=== PATIENT | male | born 1985 | race Caucasian/White ===

== ENCOUNTER 2016-10-24 09:38 | Inpatient (IN) | payer OTHER ==
[2016-10-24 10:00] VITALS: BMI 24.3
--- NOTE | 2016-10-24 10:17 | HP ---
COWS - Scale Resting Pulse: 0= [place] 80 or Below Sweatin= Chills/Flushing Restless Observation: 0= Sits Still Pupil Size: 0= Normal to Room Light Bone or Joint Aches: 2= Severe Diffuse Aches Runny Nose/ Eye Tearin= Nasal Congestion GI Upset > 30mins: 1= Stomach Cramp Tremor Observation: 1= Tremor [place], Not Seen Yawning Observation: 1= 1-2x During Session Anxiety or Irritability: 1=Feels Anxious/Irritable Goose Flesh Skin: 0=Smooth Skin COWS Score: 8 Admission ROS [facility] - HPI Chief Complaint: I want to get off drugs Allergies/Adverse Reactions: Allergies Allergy/AdvReac Type Severity Reaction Status Date / Time No Known Allergies Allergy Verified 10/24/16 09:58 History of Present Illness: 31 yo gentleman here for detox from heroin - has been using for five years, first time in detox. No seizures. Exam Limitations: Clinical Condition - Ebola screening Have you traveled outside of the country in the last 21 days: No Have you had contact with anyone from an Ebola affected area: No Have you been sick,other than usual withdrawal symptoms: No Do you have a fever: No Patient History - Patient Medical History Hx Asthma: No Hx Chronic Obstructive Pulmonary Disease (COPD): No Hx Cardiac Disorders: No Hx Hypertension: No Hx Seizures: No Hx Diabetes: No Hx Gastrointestinal Disorders: No Hx Liver Disease: No Hx Genitourinary Disorders: No Hx Sexually Transmitted Disorders: No Hx Renal Disease (ESRD): No Hx Thyroid Disease: No Hx Human Immunodeficiency Virus (HIV): No Hx Hepatitis C: No Hx Depression: No Hx Suicide Attempt: No Hx Bipolar Disorder: No Hx Schizophrenia: No - Patient Surgical History Past Surgical History: No - PPD History Previous Implant?: Yes Documented Results: Negative w/o proof Implanted On Prior [facility] Admission?: No PPD to be Administered?: Yes - Reproductive History Patient is a Female of Child Bearing Age (11 -55 yrs old): No (male) - Smoking Cessation Smoking history: Never smoked Have you smoked in the past 12 months: No Hx Chewing Tobacco Use: No Initiated information on smoking cessation: No - Substance & Tx. History Hx Alcohol Use: No Hx Substance Use: Yes Substance Use Type: Alcohol, Cocaine Hx Substance Use Treatment: No - Substances Abused Heroin Route: Injection Frequency: Daily Amount used: 1/2 gram Age of first use: 26 Date of Last Use: 10/23/16 Cocaine Route: Injection Frequency: Daily Amount used: 1/2 gram Age of first use: 18 Date of Last Use: 10/23/16 Marijuana/Hashish Route: Smoking Frequency: Daily Amount used: $20 Age of first use: 16 Date of Last Use: 10/23/16 Family Disease History - Family Disease History Family Disease History: [place]: Mother (alive, thyroid), Other: Father (no contact) , Mother, Brother (1, living, healthy), Sister (2 living, healthy) Admission Physical Exam [facility] - Vital Signs Vital Signs: Vital Signs - 24 hr 10/24/16 09:58 Temperature 95.9 F L Pulse Rate 61 Respiratory 20 Rate Blood Pressure 131/82 Cleared for Admission [facility] - Detox or Rehab [facility] Level of Care: Medically Managed Detox Regimen/Protocol: Methadone [facility] Breath Alcohol Content Breath Alcohol Content: 0 Urine Drug Screen - Results Drug Screen Negative: No Urine Drug Screen Results: THC-Marijuana, ENMANUEL-Cocaine, OPI-Opiates
[2016-10-24] MEDS ORDERED: MAG HYDROX/AL HYDROX/SIMETH 30 ML UNIT-DOSE CUP PO PRN (10:45)
[2016-10-24] MEDS ORDERED: IBUPROFEN 400 MG TABLET (FP) PO PRN (10:45)
[2016-10-24] MEDS ORDERED: MAGNESIUM CITRATE 300 ML BOTTLE PO PRN (10:45)
[2016-10-24] MEDS ORDERED: guaiFENesin/D-METHORPHAN HB 10 ML UNIT-DOSE CUPS PO PRN (10:45)
[2016-10-24] MEDS ORDERED: LOPERAMIDE HCL 2 MG CAPSULE PO PRN (10:45)
[2016-10-24] MEDS ORDERED: ACETAMINOPHEN 325 MG TABLET (FP) PO PRN (10:45)
[2016-10-24] MEDS ORDERED: MAGNESIUM HYDROX 2400MG/30ML ORAL SUSPENSION 30 ML CUP PO PRN (10:45)
[2016-10-24] MEDS ORDERED: MENTHOL/PHENOL 1 EACH UD MM PRN (10:45)
[2016-10-24] MEDS ORDERED: P-EPHED 60MG/TRIPROLIDI 2.5MG TABLET PO PRN (10:45)
[2016-10-24] MEDS ORDERED: hydrOXYzine PAMOATE 50 MG CAPSULE (FP) PO PRN (10:45)
--- NOTE | 2016-10-24 10:45 | HP ---
COWS - Scale Resting Pulse: 0= [place] 80 or Below Sweatin= Chills/Flushing Restless Observation: 0= Sits Still Pupil Size: 0= Normal to Room Light Bone or Joint Aches: 2= Severe Diffuse Aches Runny Nose/ Eye Tearin= Nasal Congestion GI Upset > 30mins: 1= Stomach Cramp Tremor Observation: 1= Tremor [place], Not Seen Yawning Observation: 1= 1-2x During Session Anxiety or Irritability: 1=Feels Anxious/Irritable Goose Flesh Skin: 0=Smooth Skin COWS Score: 8 Admission ROS S - HPI Chief Complaint: I want to get off drugs Allergies/Adverse Reactions: Allergies Allergy/AdvReac Type Severity Reaction Status Date / Time No Known Allergies Allergy Verified 10/24/16 09:58 History of Present Illness: 31 yo gentleman here for detox from heroin - first time in detox, history of using for five years. Denies seizures. Exam Limitations: Clinical Condition - Ebola screening Have you traveled outside of the country in the last 21 days: No Have you had contact with anyone from an Ebola affected area: No Have you been sick,other than usual withdrawal symptoms: No Do you have a fever: No - Review of Systems Constitutional: Malaise, Changes in sleep EENT: reports: Nose Congestion Respiratory: reports: No Symptoms reported Cardiac: reports: No Symptoms Reported GI: reports: Nausea, Poor Appetite : reports: Dysuria Musculoskeletal: reports: Back Pain, Joint Pain, Muscle Pain Integumentary: reports: No Symptoms Reported Neuro: reports: Headache Endocrine: reports: No Symptoms Reported Hematology: reports: No Symptoms Reported Psychiatric: reports: Judgement Intact, Mood/Affect Appropiate, Orientated x3, Anxious Other Systems: Reviewed and Negative Patient History - Patient Medical History Hx Asthma: No Hx Chronic Obstructive Pulmonary Disease (COPD): No Hx Cardiac Disorders: No Hx Hypertension: No Hx Seizures: No Hx Diabetes: No Hx Gastrointestinal Disorders: No Hx Liver Disease: No Hx Genitourinary Disorders: No Hx Sexually Transmitted Disorders: No Hx Renal Disease (ESRD): No Hx Thyroid Disease: No Hx Human Immunodeficiency Virus (HIV): No Hx Hepatitis C: No Hx Depression: No Hx Suicide Attempt: No Hx Bipolar Disorder: No Hx Schizophrenia: No - Patient Surgical History Past Surgical History: No - PPD History Previous Implant?: Yes Documented Results: Negative w/o proof Implanted On Prior [facility] Admission?: No - Reproductive History Patient is a Female of Child Bearing Age (11 -55 yrs old): No (male) - Smoking Cessation Smoking history: Never smoked Have you smoked in the past 12 months: No Hx Chewing Tobacco Use: No Initiated information on smoking cessation: No - Substance & Tx. History Hx Alcohol Use: No Hx Substance Use: Yes Substance Use Type: Cocaine, Heroin, Marijuana Hx Substance Use Treatment: No - Substances Abused Heroin Route: Injection Frequency: Daily Amount used: 1/2 gram Age of first use: 26 Date of Last Use: 10/23/16 Cocaine Route: Injection Frequency: Daily Amount used: 1/2 gram Age of first use: 18 Date of Last Use: 10/23/16 Marijuana/Hashish Route: Smoking Frequency: Daily Amount used: $20 Age of first use: 16 Date of Last Use: 10/23/16 Family Disease History - Family Disease History Family Disease History: [place]: Mother (alive, thyroid), Other: Father (no contact) , Mother, Brother (1, living, healthy), Sister (2 living, healthy) Admission Physical Exam S - Vital Signs Vital Signs: Vital Signs - 24 hr 10/24/16 09:58 Temperature 95.9 F L Pulse Rate 61 Respiratory 20 Rate Blood Pressure 131/82 - Physical General Appearance: Yes: Nourished, Appropriately Dressed, Moderate Distress, Anxious HEENTM: Yes: Hearing grossly Normal, Normal ENT Inspection, Normocephalic, Normal Voice, Pharynx Normal, Rhinorrhea Respiratory: Yes: Normal Breath Sounds, No Respiratory Distress Neck: Yes: No masses,lesions,Nodules, Supple Breast: Yes: Breast Exam Deferred Cardiology: Yes: Regular Rhythm, Regular Rate Abdominal: Yes: Soft Genitourinary: Yes: Dysuria Back: Yes: Decreased Range of Motion Musculoskeletal: Yes: full range of Motion, Gait Steady, Back pain, Muscle Pain Extremities: Yes: Normal Inspection, Normal Range of Motion, Non-Tender Neurological: Yes: Fully Oriented, Alert, Motor Strength 5/5, Normal Mood/Affect , Normal Response Integumentary: Yes: Normal Color, Warm, Track Marquez (both antecubital space - no abscess noted) - Diagnostic (1) Opioid dependence with withdrawal Current Visit: Yes Status: Chronic (2) Cocaine dependence Current Visit: Yes Status: Chronic Qualifiers: Complication of substance-induced condition: uncomplicated (3) Cannabis dependence Current Visit: Yes Status: Chronic Cleared for Admission [facility] - Detox or Rehab [facility] Level of Care: Medically Managed Detox Regimen/Protocol: Methadone [facility] Breath Alcohol Content Breath Alcohol Content: 0 Urine Drug Screen - Results Drug Screen Negative: No Urine Drug Screen Results: THC-Marijuana, ENMANUEL-Cocaine, OPI-Opiates
[2016-10-24] MEDS ORDERED: METHADONE HCL 10 MG TABLET (FOR DETOX USE ONLY) PO ONE ×2 (12:00→23:00)
[2016-10-24] MEDS: diazePAM 5 MG TABLET PO PRN (12:53)
[2016-10-24 18:19] LABS: URINE APPEARANCE CLEAR; URINE BILIRUBIN NEGATIVE (NEGATIVE); URINE BLOOD NEGATIVE (NEGATIVE); URINE COLOR AMBER; URINE GLUCOSE (UA) NEGATIVE (NEGATIVE); URINE KETONE NEGATIVE (NEGATIVE); URINE LEUK ESTERASE NEGATIVE (NEGATIVE); URINE NITRITE NEGATIVE (NEGATIVE); URINE UROBILINOGEN 4.0 E.U/dl mg/dL (0.2-1.0)
[2016-10-24 18:25] LABS: URINE PROTEIN 1+ (NEGATIVE)
[2016-10-24 18:26] LABS: URINE HYALINE CAST 5 /lpf; URINE MUCUS MANY; URINE RBC 3 /hpf (0-3); URINE WBC 1 /hpf (3-5)
[2016-10-24] MEDS: THIAMINE HCL 100 MG TABLET (FP) PO SCH (22:41)
--- NOTE | 2016-10-25 08:11 | EKG ---
Test Reason : Blood Pressure : / mmHG Vent. Rate : 061 BPM Atrial Rate : 061 BPM P-R Int : 144 ms QRS Dur : 096 ms QT Int : 402 ms P-R-T Axes : 027 056 049 degrees QTc Int : 404 ms NORMAL SINUS RHYTHM NORMAL ECG NO PREVIOUS ECGS AVAILABLE Confirmed by JAMEY OLEARY, FLAVIO ([id number]) on 10/25/2016 8:11:00 AM Referred By: Confirmed By:FLAVIO CONCEPCION MD
[2016-10-25 09:21] LABS: MCH 28.8 pg (25.7-33.7); MCHC 32.9 g/dl (32.0-35.9); MEAN CELL VOLUME 87.5 fl (80-96); MEAN PLT VOLUME 9.8 fl (7.5-11.1); PLATELET COUNT 212 K/MM3 (134-434); RDW 14.5 % (11.9-15.9); WHITE BLOOD COUNT 4.1 K/mm3 (4.0-10.0)
[2016-10-25 09:50] LABS: ALBUMIN 3.1 g/dl (3.4-5.0); ANION GAP 4 (8-16); CALCIUM 8.4 mg/dL (8.5-10.1); CO2 30 mmol/L (21-32); CREATININE 0.9 mg/dL (0.7-1.3); GLUCOSE,RANDOM 87 mg/dL (74-106); SGOT/AST 301 U/L (15-37)
[2016-10-25 09:52] LABS: ALK PHOS 90 U/L (45-117); BILIRUBIN,TOTAL 0.6 mg/dL (0.2-1.0); SGPT/ALT 586 U/L (12-78); TOT PROT 6.1 g/dl (6.4-8.2)
[2016-10-25] MEDS ORDERED: METHADONE HCL 10 MG TABLET (FOR DETOX USE ONLY) PO ONE (10:00)
[2016-10-25] MEDS: PRENATAL VITAMINS W/ FOLIC ACID TABLET (FP) PO SCH (10:57)
[2016-10-25] MEDS: diazePAM 5 MG TABLET PO PRN ×2 (11:00→20:30)
--- NOTE | 2016-10-25 16:05 | PN ---
S COWS - Scale Resting Pulse: 0= [place] 80 or Below Sweatin=Flushed/Facial Moisture Restless Observation: 3= Extraneous Movement Pupil Size: 1= Pupils >than Normal Bone or Joint Aches: 2= Severe Diffuse Aches Runny Nose/ Eye Tearin= Runny Nose/Eyes GI Upset > 30mins: 2= Nausea/Diarrhea Tremor Observation of Outstretched Hands: 2= Slight Tremor Visible Yawning Observation: 1= 1-2x During Session Anxiety or Irritability: 2=Irritable/Anxious Goose Flesh Skin: 0=Smooth Skin COWS Score: 17 S Progress Note (SOAP) Subjective: Sweating, chills, nausea, interrupted sleep, body ache Objective: 10/25/16 16:03 Last Vital Signs Temp Pulse Resp BP Pulse Ox 96.9 F L 64 18 115/73 10/25/16 10:52 10/25/16 10:52 10/25/16 10:52 10/25/16 10:52 Laboratory Tests 10/24/16 10/25/16 10/25/16 14:27 07:40 07:40 WBC 4.1 RBC 4.82 Hgb 13.9 Hct 42.2 MCV 87.5 MCH 28.8 MCHC 32.9 RDW 14.5 Plt Count 212 MPV 9.8 Sodium 142 Potassium 4.0 Chloride 108 H Carbon Dioxide 30 Anion Gap 4 L BUN 7 Creatinine 0.9 Creat Clearance w eGFR > 60 Random Glucose 87 Calcium 8.4 L Total Bilirubin 0.6 AST 301 H ALT 586 H Alkaline Phosphatase 90 Total Protein 6.1 L Albumin 3.1 L Urine Color Amy Urine Appearance Clear Urine pH 6.0 Ur Specific [place] 1.025 Urine Protein 1+ H Urine Glucose (UA) Negative Urine Ketones Negative Urine Blood Negative Urine Nitrite Negative Urine Bilirubin Negative Urine Urobilinogen 4.0 e.u/dl Ur Leukocyte Esterase Negative Urine RBC 3 Urine WBC 1 Hyaline Casts 5 Urine Mucus Many RPR Titer 10/25/16 07:40 WBC RBC Hgb Hct MCV MCH MCHC RDW Plt Count MPV Sodium Potassium Chloride Carbon Dioxide Anion Gap BUN Creatinine Creat Clearance w eGFR Random Glucose Calcium Total Bilirubin AST ALT Alkaline Phosphatase Total Protein Albumin Urine Color Urine Appearance Urine pH Ur Specific [place] Urine Protein Urine Glucose (UA) Urine Ketones Urine Blood Urine Nitrite Urine Bilirubin Urine Urobilinogen Ur Leukocyte Esterase Urine RBC Urine WBC Hyaline Casts Urine Mucus RPR Titer Nonreactive Labs noted: abnormal ua Assessment: 10/25/16 16:04 Withdrawal symptoms Noted with abnormal UA Plan: Continue detox Abnormal UA: encouraged to drink lots of water, repeat UA
[2016-10-25] MEDS: THIAMINE HCL 100 MG TABLET (FP) PO SCH (22:30)
[2016-10-26] MEDS: diazePAM 5 MG TABLET PO PRN ×3 (06:15→22:48)
[2016-10-26] MEDS ORDERED: METHADONE HCL 5 MG TABLET (FOR DETOX USE ONLY) PO ONE (10:00)
[2016-10-26] MEDS: PRENATAL VITAMINS W/ FOLIC ACID TABLET (FP) PO SCH (10:53)
--- NOTE | 2016-10-26 11:44 | PN ---
S COWS - Scale Resting Pulse: 0= [place] 80 or Below Sweatin=Flushed/Facial Moisture Restless Observation: 1= Difficult to Sit Still Pupil Size: 0= Normal to Room Light Bone or Joint Aches: 2= Severe Diffuse Aches Runny Nose/ Eye Tearin= Runny Nose/Eyes GI Upset > 30mins: 2= Nausea/Diarrhea Tremor Observation of Outstretched Hands: 2= Slight Tremor Visible Yawning Observation: 1= 1-2x During Session Anxiety or Irritability: 2=Irritable/Anxious Goose Flesh Skin: 0=Smooth Skin COWS Score: 14 S Progress Note (SOAP) Subjective: Anxiety,tremors,sweating,interrupted sleep,restless,body aches. Objective: 10/26/16 11:43 Vital Signs - 8 hr 10/26/16 10/26/16 07:28 09:18 Temperature 97.0 F L 97.5 F L Pulse Rate 50 L 59 L Respiratory 18 18 Rate Blood Pressure 112/81 105/71 Laboratory Tests 10/24/16 10/25/16 10/25/16 14:27 07:40 07:40 WBC 4.1 RBC 4.82 Hgb 13.9 Hct 42.2 MCV 87.5 MCH 28.8 MCHC 32.9 RDW 14.5 Plt Count 212 MPV 9.8 Sodium 142 Potassium 4.0 Chloride 108 H Carbon Dioxide 30 Anion Gap 4 L BUN 7 Creatinine 0.9 Creat Clearance w eGFR > 60 Random Glucose 87 Calcium 8.4 L Total Bilirubin 0.6 AST 301 H ALT 586 H Alkaline Phosphatase 90 Total Protein 6.1 L Albumin 3.1 L Urine Color Amy Urine Appearance Clear Urine pH 6.0 Ur Specific [place] 1.025 Urine Protein 1+ H Urine Glucose (UA) Negative Urine Ketones Negative Urine Blood Negative Urine Nitrite Negative Urine Bilirubin Negative Urine Urobilinogen 4.0 e.u/dl Ur Leukocyte Esterase Negative Urine RBC 3 Urine WBC 1 Hyaline Casts 5 Urine Mucus Many RPR Titer 10/25/16 07:40 WBC RBC Hgb Hct MCV MCH MCHC RDW Plt Count MPV Sodium Potassium Chloride Carbon Dioxide Anion Gap BUN Creatinine Creat Clearance w eGFR Random Glucose Calcium Total Bilirubin AST ALT Alkaline Phosphatase Total Protein Albumin Urine Color Urine Appearance Urine pH Ur Specific [place] Urine Protein Urine Glucose (UA) Urine Ketones Urine Blood Urine Nitrite Urine Bilirubin Urine Urobilinogen Ur Leukocyte Esterase Urine RBC Urine WBC Hyaline Casts Urine Mucus RPR Titer Nonreactive labs noted Assessment: 10/26/16 11:44 Withdrawal sx. Plan: Continue detox
--- NOTE | 2016-10-26 14:57 | CONSULT ---
[facility] Psychiatric Consult - Data Date of interview: 10/26/16 Admission source: [facility] Identifying data: First admission to [facility] for this 31 y/o male seeking detox treatment on for heroin,cocaine and marijuana dependence.Patient is single without children,homeless,unemployed and supported on food stamps. Substance Abuse History: Urine Drug Screen Results: THC-Marijuana, ENMANUEL-Cocaine, OPI-Opiates.Noted. Discussed in this session.Patient confirms this report : Smoking Cessation. Smoking history: Never smoked. Have you smoked in the past 12 months: No. Hx Chewing Tobacco Use: No. Initiated information on smoking cessation: No. - Substance & Tx. History. Hx Alcohol Use: No. Hx Substance Use: Yes. Substance Use Type: Cocaine, Heroin, Marijuana. Hx Substance Use Treatment: No. - Substances Abused. Heroin. Route: Injection. Frequency: Daily. Amount used: 1/2 gram. Age of first use: 26. Date of Last Use: . Cocaine. Route: Injection. Frequency: Daily. Amount used: 1/2 gram. Age of first use: 18. Date of Last Use: 10/23/16. Marijuana/Hashish. Route : Smoking. Frequency: Daily. Amount used: $20. Age of first use: 16. Date of Last Use: 10/23/16 Medical History: Patient endorses good general health. Psychiatric History: Patient denies. Physical/Sexual Abuse/Trauma History: Patient denies. Mental Status Exam - Mental Status Exam Alert and Oriented to: Time, Place, Person Cognitive Function: Good Patient Appearance: Well Groomed Mood: Hopeful, Euthymic Affect: Appropriate, Normal Range Patient Behavior: Fatigued, Appropriate, Cooperative Speech Pattern: Clear Voice Loudness: Normal Thought Process: Goal Oriented Thought Disorder: Not Present Hallucinations: Denies Suicidal Ideation: Denies Homicidal Ideation: Denies Insight/Judgement: Poor Sleep: Poorly, Difficulty falling asleep Appetite: Good Muscle strength/Tone: Normal Gait/Station: Normal Psychiatric Findings - Problem List ([place] 1, 2,3) (1) Opioid dependence with withdrawal Current Visit: Yes Status: Acute (2) Cannabis dependence Current Visit: Yes Status: Acute (3) Cocaine dependence Current Visit: Yes Status: Acute Qualifiers: Complication of substance-induced condition: uncomplicated (4) Insomnia Current Visit: Yes Status: Acute - Initial Treatment Plan Initial Treatment Plan: Psychoeducation.Detoxification.Ambien 10 mg po hs.Patient made aware of potential for parasomnia.he agrees with this careplan.Observation.
[2016-10-26 16:59] LABS: URINE APPEARANCE CLEAR; URINE BILIRUBIN NEGATIVE (NEGATIVE); URINE BLOOD NEGATIVE (NEGATIVE); URINE COLOR COLORLESS; URINE GLUCOSE (UA) 3+ (NEGATIVE); URINE KETONE NEGATIVE (NEGATIVE); URINE LEUK ESTERASE NEGATIVE (NEGATIVE); URINE NITRITE NEGATIVE (NEGATIVE); URINE PROTEIN NEGATIVE (NEGATIVE); URINE UROBILINOGEN NEGATIVE mg/dL (0.2-1.0)
[2016-10-26] MEDS: diphenhydrAMINE HCL 50 MG CAPSULE PO PRN (22:49)
[2016-10-26] MEDS: THIAMINE HCL 100 MG TABLET (FP) PO SCH (22:50)
[2016-10-27] MEDS ORDERED: METHADONE HCL 5 MG TABLET (FOR DETOX USE ONLY) PO ONE (10:00)
[2016-10-27] MEDS: PRENATAL VITAMINS W/ FOLIC ACID TABLET (FP) PO SCH (11:01)
[2016-10-27] MEDS ORDERED: ONDANSETRON *ODT* 4 MG TABLET SL PRN (11:59)
--- NOTE | 2016-10-27 13:49 | PN ---
[facility] Progress Note (SOAP) Subjective: Sweating,interrupted sleep,restless Objective: 10/27/16 13:48 Vital Signs - 8 hr 10/27/16 09:43 Temperature 97 F L Pulse Rate 80 Respiratory 18 Rate Blood Pressure 109/73 Laboratory Last Values WBC 4.1 K/mm3 (4.0-10.0) 10/25/16 07:40 RBC 4.82 M/mm3 (4.00-5.60) 10/25/16 07:40 Hgb 13.9 GM/dL (11.7-16.9) 10/25/16 07:40 Hct 42.2 % (35.4-49) 10/25/16 07:40 MCV 87.5 fl (80-96) 10/25/16 07:40 MCH 28.8 pg (25.7-33.7) 10/25/16 07:40 MCHC 32.9 g/dl (32.0-35.9) 10/25/16 07:40 RDW 14.5 % (11.9-15.9) 10/25/16 07:40 Plt Count 212 K/MM3 (134-434) 10/25/16 07:40 MPV 9.8 fl (7.5-11.1) 10/25/16 07:40 Sodium 142 mmol/L (136-145) 10/25/16 07:40 Potassium 4.0 mmol/L (3.5-5.1) 10/25/16 07:40 Chloride 108 mmol/L (98-107) H 10/25/16 07:40 Carbon Dioxide 30 mmol/L (21-32) 10/25/16 07:40 Anion Gap 4 (8-16) L 10/25/16 07:40 BUN 7 mg/dL (7-18) 10/25/16 07:40 Creatinine 0.9 mg/dL (0.7-1.3) 10/25/16 07:40 Creat Clearance w eGFR > 60 (>60) 10/25/16 07:40 Random Glucose 87 mg/dL (74-106) 10/25/16 07:40 Calcium 8.4 mg/dL (8.5-10.1) L 10/25/16 07:40 Total Bilirubin 0.6 mg/dL (0.2-1.0) 10/25/16 07:40 AST 301 U/L (15-37) H 10/25/16 07:40 ALT 586 U/L (12-78) H 10/25/16 07:40 Alkaline Phosphatase 90 U/L (45-117) 10/25/16 07:40 Total Protein 6.1 g/dl (6.4-8.2) L 10/25/16 07:40 Albumin 3.1 g/dl (3.4-5.0) L 10/25/16 07:40 Urine Color Colorless 10/26/16 16:51 Urine Appearance Clear 10/26/16 16:51 Urine pH 5.0 (5.0-8.0) 10/26/16 16:51 Ur Specific [place] <= 1.005 (1.005-1.025) 10/26/16 16:51 Urine Protein Negative (NEGATIVE) 10/26/16 16:51 Urine Glucose (UA) 3+ (NEGATIVE) H 10/26/16 16:51 Urine Ketones Negative (NEGATIVE) 10/26/16 16:51 Urine Blood Negative (NEGATIVE) 10/26/16 16:51 Urine Nitrite Negative (NEGATIVE) 10/26/16 16:51 Urine Bilirubin Negative (NEGATIVE) 10/26/16 16:51 Urine Urobilinogen Negative mg/dL (0.2-1.0) 10/26/16 16:51 Ur Leukocyte Esterase Negative (NEGATIVE) 10/26/16 16:51 Urine RBC 3 /hpf (0-3) 10/24/16 14:27 Urine WBC 1 /hpf (3-5) 10/24/16 14:27 Hyaline Casts 5 /lpf 10/24/16 14:27 Urine Mucus Many 10/24/16 14:27 RPR Titer Nonreactive (NONREACTIVE) 10/25/16 07:40 Hepatitis C Antibody >11.0 s/co ratio (0.0-0.9) H 10/25/16 07:40 labs noted Assessment: 10/27/16 13:49 Withdrawal sx Plan: Continue detox
[2016-10-27] MEDS: diphenhydrAMINE HCL 50 MG CAPSULE PO PRN (22:35)
[2016-10-27] MEDS: THIAMINE HCL 100 MG TABLET (FP) PO SCH (22:37)
[2016-10-28] MEDS: PRENATAL VITAMINS W/ FOLIC ACID TABLET (FP) PO SCH (09:29)
[2016-10-28 09:41] VITALS: BP 119/79; PULSE 79; TEMP 96.3
[2016-10-28] MEDS ORDERED: METHADONE HCL 10 MG TABLET (FOR DETOX USE ONLY) PO ONE (10:00)
--- NOTE | 2016-10-28 16:40 | DS ---
[facility] Detox Discharge Summary Admission Date: 10/24/16 Discharge Date: 10/28/16 - History Present History: Cannabis Dependence, Cocaine Dependence, Opioid Dependence Additional Comments: PATIENT DOES NOT WISH TO STAY TO COMPLETE DETOX REGIMEN. PATIENT ADVISED TO IMMEDIATELY GO TO NEAREST ER SHOULD ANY INTOLERABLE DETOX SYMPTOMS DEVELOP AT ANY TIME. PATIENT LEFT UNIT IN STABLE MEDICAL CONDITION. Pertinent Past History: Insomnia. - Physical Exam Results Vital Signs: Vital Signs Temperature 96.3 F L 10/28/16 09:41 Pulse Rate 79 10/28/16 09:41 Respiratory Rate 18 10/28/16 09:41 Blood Pressure 119/79 10/28/16 09:41 O2 Sat by Pulse Oximetry (%) Pertinent Admission Physical Exam Findings: WITHDRAWAL SYMPTOMS. Laboratory Tests 10/24/16 10/25/16 10/25/16 14:27 07:40 07:40 WBC 4.1 RBC 4.82 Hgb 13.9 Hct 42.2 MCV 87.5 MCH 28.8 MCHC 32.9 RDW 14.5 Plt Count 212 MPV 9.8 Sodium Potassium Chloride Carbon Dioxide Anion Gap BUN Creatinine Creat Clearance w eGFR Random Glucose Calcium Total Bilirubin AST ALT Alkaline Phosphatase Total Protein Albumin Urine Color Amy Urine Appearance Clear Urine pH 6.0 Ur Specific [place] 1.025 Urine Protein 1+ H Urine Glucose (UA) Negative Urine Ketones Negative Urine Blood Negative Urine Nitrite Negative Urine Bilirubin Negative Urine Urobilinogen 4.0 e.u/dl Ur Leukocyte Esterase Negative Urine RBC 3 Urine WBC 1 Hyaline Casts 5 Urine Mucus Many RPR Titer Hepatitis C Antibody >11.0 H 10/25/16 10/25/16 10/26/16 07:40 07:40 16:51 WBC RBC Hgb Hct MCV MCH MCHC RDW Plt Count MPV Sodium 142 Potassium 4.0 Chloride 108 H Carbon Dioxide 30 Anion Gap 4 L BUN 7 Creatinine 0.9 Creat Clearance w eGFR > 60 Random Glucose 87 Calcium 8.4 L Total Bilirubin 0.6 AST 301 H ALT 586 H Alkaline Phosphatase 90 Total Protein 6.1 L Albumin 3.1 L Urine Color Colorless Urine Appearance Clear Urine pH 5.0 Ur Specific [place] <= 1.005 Urine Protein Negative Urine Glucose (UA) 3+ H Urine Ketones Negative Urine Blood Negative Urine Nitrite Negative Urine Bilirubin Negative Urine Urobilinogen Negative Ur Leukocyte Esterase Negative Urine RBC Urine WBC Hyaline Casts Urine Mucus RPR Titer Nonreactive Hepatitis C Antibody LABS NOTED. - Treatment Hospital Course: Detoxed Safely - Medication Discharge Medications: Ambulatory Orders NK [No Known Home Medication] 10/24/16 - Diagnosis (1) Cannabis dependence Status: Acute (2) Insomnia Status: Acute Qualifiers: Insomnia type: unspecified Qualified Code(s): G47.00 - Insomnia, unspecified (3) Opioid dependence with withdrawal Status: Acute (4) Cocaine dependence, uncomplicated Status: Acute - AMA Did Patient Leave Against Medical Advice: Yes (PATIENT DID NOT WISH TO STAY TO COMPLETED DETOX REGIMEN.)
[2016-10-29] MEDS ORDERED: METHADONE HCL 5 MG TABLET (FOR DETOX USE ONLY) PO ONE (06:00)
[2016-10-29 10:12] LABS: HCV LOG 10 6.775 (.)
== END 2016-10-28 10:12 | disposition left against medical advice (07) | DRG 770 ==
LOC: YASAS 09:38 → Y3N 11:33
PROVIDERS: ADMIT Internal Medicine; ATTEND Internal Medicine
PROC: HZ2ZZZZ Detoxification Services for Substance Abuse Treatment (ICD-10-PCS; principal; 2016-10-24)
DX: F11.23 Opioid dependence with withdrawal (principal); F14.20 Cocaine dependence, uncomplicated; F12.20 Cannabis dependence, uncomplicated; G47.00 Insomnia, unspecified; R82.90 Unspecified abnormal findings in urine; Z59.0 Homelessness
CPT/HCPCS: 36415; 80053; 81003; 81015; 85027; 86593; 86803; 87522; 93005; 93010

== ENCOUNTER 2021-02-01 12:26 | Inpatient (IN) | payer BC ==
[2021-02-01 14:36] VITALS: BMI 23.1
[2021-02-01] MEDS ORDERED: ONDANSETRON *ODT* 4 MG TABLET SL PRN (15:20)
[2021-02-01] MEDS ORDERED: MAGNESIUM HYDROX 2400MG/30ML ORAL SUSPENSION 30 ML CUP PO PRN (15:20)
[2021-02-01] MEDS ORDERED: MENTHOL/PHENOL 1 EACH UD MM PRN (15:20)
[2021-02-01] MEDS ORDERED: MAGNESIUM CITRATE 300 ML BOTTLE PO PRN (15:20)
[2021-02-01] MEDS ORDERED: hydrOXYzine PAMOATE 25 MG CAPSULE (FP) PO PRN (15:20)
[2021-02-01] MEDS ORDERED: BISMUTH SUBSALICYLATE 524 MG/30 ML PO PRN (15:20)
[2021-02-01] MEDS ORDERED: IBUPROFEN 400 MG TABLET (FP) PO PRN (15:20)
[2021-02-01] MEDS ORDERED: MAG HYDROX/AL HYDROX/SIMETH 30 ML UNIT-DOSE CUP PO PRN (15:20)
[2021-02-01] MEDS ORDERED: METHOCARBAMOL 500 MG TABLET PO PRN (15:20)
[2021-02-01] MEDS ORDERED: ACETAMINOPHEN 325 MG TABLET (FP) PO PRN ×2 (15:20)
[2021-02-01] MEDS ORDERED: methaDONE HCL 10 MG TABLET (FOR DETOX USE ONLY) PO ONE (15:22)
[2021-02-01] MEDS: MELATONIN 5 MG TABLETS PO SCH (23:31)
[2021-02-01] MEDS: THIAMINE HCL 100 MG TABLET (FP) PO SCH (23:31)
[2021-02-02] MEDS: cloNIDine HCL 0.1 MG TABLET PO PRN ×2 (05:56→12:09)
[2021-02-02] MEDS ORDERED: methaDONE HCL 10 MG TABLET (FOR DETOX USE ONLY) ONE (09:04)
[2021-02-02] MEDS: PRENATAL VITAMINS W/ FOLIC ACID TABLET (FP) PO SCH (12:56)
[2021-02-02] MEDS: MELATONIN 5 MG TABLETS PO SCH (22:52)
[2021-02-02] MEDS: THIAMINE HCL 100 MG TABLET (FP) PO SCH (22:52)
[2021-02-03 08:55] VITALS: BP 118/77; PULSE 68; TEMP 96.9
[2021-02-03] MEDS ORDERED: methaDONE HCL 10 MG TABLET (FOR DETOX USE ONLY) PO ONE (10:00)
[2021-02-03] MEDS: PRENATAL VITAMINS W/ FOLIC ACID TABLET (FP) PO SCH (11:22)
[2021-02-03 12:20] LABS: HEMATOCRIT 43.1 % (35.4-49); HEMOGLOBIN 14.4 GM/dL (11.7-16.9); MCH 28.5 pg (25.7-33.7); MCHC 33.3 g/dl (32.0-35.9); MEAN CELL VOLUME 85.5 fl (80-96); PLATELET COUNT 366 10^3/uL (134-434); RBC 5.05 M/mm3 (4.00-5.60); RDW 15.6 % (11.9-15.9); WHITE BLOOD COUNT 5.6 K/mm3 (4.0-10.0)
[2021-02-03 12:24] LABS: BLOOD UREA NITROGEN 10.7 mg/dL (7-18); CALCIUM 9.6 mg/dL (8.5-10.1)
[2021-02-03 12:25] LABS: ALBUMIN 3.7 g/dl (3.4-5.0)
[2021-02-03 12:27] LABS: CREATININE 0.8 mg/dL (0.55-1.3)
[2021-02-03 12:29] LABS: BILIRUBIN,TOTAL 0.5 mg/dL (0.2-1)
[2021-02-03 12:30] LABS: TOT PROT 7.8 g/dl (6.4-8.2)
[2021-02-05] MEDS ORDERED: methaDONE HCL 10 MG TABLET (FOR DETOX USE ONLY) PO ONE (10:00)
== END 2021-02-03 09:52 | disposition left against medical advice (07) | DRG 770 ==
LOC: YASAS 12:26 → Y3N 15:40
PROVIDERS: ADMIT Allergy & Immunology; ATTEND Allergy & Immunology
PROC: HZ2ZZZZ Detoxification Services for Substance Abuse Treatment (ICD-10-PCS; principal; 2021-02-01)
DX: F11.23 Opioid dependence with withdrawal (principal); F14.20 Cocaine dependence, uncomplicated; F12.20 Cannabis dependence, uncomplicated; G47.00 Insomnia, unspecified
CPT/HCPCS: 36415; 80053; 85027; 86780; C9803; J0735; U0003; U0005

== ENCOUNTER 2021-06-08 15:17 | Inpatient (IN) | payer BC ==
[2021-06-08 15:43] VITALS: BMI 22.5
[2021-06-08] MEDS ORDERED: MAG HYDROX/AL HYDROX/SIMETH 30 ML UNIT-DOSE CUP PO PRN (16:05)
[2021-06-08] MEDS ORDERED: MELATONIN 5 MG TABLETS PO PRN (16:05)
[2021-06-08] MEDS ORDERED: LOPERAMIDE HCL 2 MG CAPSULE PO PRN (16:05)
[2021-06-08] MEDS ORDERED: P-EPHED 60MG/TRIPROLIDI 2.5MG TABLET PO PRN (16:05)
[2021-06-08] MEDS ORDERED: NICOTINE POLACRILEX 2 MG GUM BUC PRN (16:05)
[2021-06-08] MEDS ORDERED: ACETAMINOPHEN 325 MG TABLET (FP) PO PRN ×2 (16:05)
[2021-06-08] MEDS ORDERED: IBUPROFEN 400 MG TABLET (FP) PO PRN (16:05)
[2021-06-08] MEDS ORDERED: MAGNESIUM CITRATE 300 ML BOTTLE PO PRN (16:05)
[2021-06-08] MEDS ORDERED: NICOTINE 10 MG CARTRIDGE (INHALER) IH PRN (16:05)
[2021-06-08] MEDS ORDERED: MAGNESIUM HYDROX 2400MG/30ML ORAL SUSPENSION 30 ML CUP PO PRN (16:05)
[2021-06-08] MEDS ORDERED: MENTHOL/PHENOL 1 EACH UD MM PRN (16:05)
[2021-06-08] MEDS ORDERED: chlordiazePOXIDE HCL 25 MG CAPSULE PO PRN (16:07)
[2021-06-08] MEDS ORDERED: chlordiazePOXIDE HCL 25 MG CAPSULE ONE (17:12)
[2021-06-08] MEDS: chlordiazePOXIDE HCL 25 MG CAPSULE PO SCH ×2 (17:13→22:05)
[2021-06-08] MEDS: ONDANSETRON *ODT* 4 MG TABLET SL PRN (19:11)
[2021-06-08] MEDS: METHOCARBAMOL 500 MG TABLET PO PRN (19:11)
[2021-06-08] MEDS: hydrOXYzine PAMOATE 25 MG CAPSULE (FP) PO PRN (21:04)
[2021-06-08] MEDS: SULFAMETHOXAZOLE/TRIMETHOPRIM 800MG/160MG D.S. TABLET PO SCH (21:46)
[2021-06-08] MEDS: THIAMINE HCL 100 MG TABLET (FP) PO SCH (21:46)
[2021-06-08] MEDS: BISMUTH SUBSALICYLATE 524 MG/30 ML PO PRN (21:54)
[2021-06-09] MEDS: chlordiazePOXIDE HCL 25 MG CAPSULE PO SCH ×2 (06:15→10:53)
[2021-06-09] MEDS: hydrOXYzine PAMOATE 25 MG CAPSULE (FP) PO PRN ×3 (06:16→18:54)
[2021-06-09] MEDS: METHOCARBAMOL 500 MG TABLET PO PRN ×3 (06:17→20:58)
[2021-06-09] MEDS: ONDANSETRON *ODT* 4 MG TABLET SL PRN ×2 (06:19→14:02)
[2021-06-09 10:41] LABS: HEMATOCRIT 40.6 % (35.4-49); HEMOGLOBIN 13.2 GM/dL (11.7-16.9); MCH 27.2 pg (25.7-33.7); MCHC 32.6 g/dl (32.0-35.9); MEAN CELL VOLUME 83.5 fl (80-96); PLATELET COUNT 393 10^3/uL (134-434); RBC 4.86 M/mm3 (4.00-5.60); RDW 15.9 % (11.9-15.9); WHITE BLOOD COUNT 7.1 K/mm3 (4.0-10.0)
[2021-06-09 10:43] LABS: CALCIUM 9.2 mg/dL (8.5-10.1)
[2021-06-09 10:44] LABS: ALBUMIN 3.7 g/dl (3.4-5.0); BLOOD UREA NITROGEN 10.7 mg/dL (7-18)
[2021-06-09 10:49] LABS: BILIRUBIN,TOTAL 0.4 mg/dL (0.2-1); TOT PROT 7.4 g/dl (6.4-8.2)
[2021-06-09] MEDS: PRENATAL VITAMINS W/ FOLIC ACID TABLET (FP) PO SCH (10:53)
[2021-06-09] MEDS: SULFAMETHOXAZOLE/TRIMETHOPRIM 800MG/160MG D.S. TABLET PO SCH ×2 (10:53→22:14)
[2021-06-09] MEDS: BISMUTH SUBSALICYLATE 524 MG/30 ML PO PRN ×3 (10:57→22:13)
[2021-06-09] MEDS ORDERED: methaDONE HCL 10 MG TABLET (FOR DETOX USE ONLY) PO ONE (14:15)
[2021-06-09] MEDS: diazePAM 5 MG TABLET PO PRN ×2 (15:35→20:57)
[2021-06-09] MEDS: diazePAM 5 MG TABLET PO SCH ×2 (17:53→22:16)
[2021-06-09] MEDS: cloNIDine HCL 0.1 MG TABLET PO PRN ×2 (18:54→22:14)
[2021-06-09] MEDS: THIAMINE HCL 100 MG TABLET (FP) PO SCH (22:14)
[2021-06-10] MEDS ORDERED: chlordiazePOXIDE HCL 25 MG CAPSULE PO SCH (05:00)
[2021-06-10] MEDS: diazePAM 5 MG TABLET PO PRN (05:59)
[2021-06-10] MEDS: diazePAM 5 MG TABLET PO SCH ×2 (06:40→10:20)
[2021-06-10 08:53] VITALS: BP 111/71; PULSE 78; TEMP 97.8
[2021-06-10] MEDS: PRENATAL VITAMINS W/ FOLIC ACID TABLET (FP) PO SCH (10:20)
[2021-06-10] MEDS: SULFAMETHOXAZOLE/TRIMETHOPRIM 800MG/160MG D.S. TABLET PO SCH (10:20)
[2021-06-11] MEDS ORDERED: chlordiazePOXIDE HCL 10 MG CAPSULE PO PRN
[2021-06-11] MEDS ORDERED: chlordiazePOXIDE HCL 10 MG CAPSULE PO SCH (05:00)
[2021-06-11] MEDS ORDERED: diazePAM 5 MG TABLET PO SCH (06:00)
[2021-06-11 08:08] LABS: SARS-CoV-2 NAA Not Detected (Not Detected)
[2021-06-11] MEDS ORDERED: methaDONE HCL 10 MG TABLET (FOR DETOX USE ONLY) PO ONE (10:00)
[2021-06-12] MEDS ORDERED: chlordiazePOXIDE HCL 10 MG CAPSULE PO SCH (05:00)
[2021-06-12] MEDS ORDERED: diazePAM 5 MG TABLET PO SCH (06:00)
[2021-06-13] MEDS ORDERED: chlordiazePOXIDE HCL 10 MG CAPSULE PO ONE (05:00)
[2021-06-13] MEDS ORDERED: diazePAM 5 MG TABLET PO ONE (06:00)
[2021-06-13] MEDS ORDERED: methaDONE HCL 10 MG TABLET (FOR DETOX USE ONLY) PO ONE (10:00)
== END 2021-06-10 09:33 | disposition left against medical advice (07) | DRG 773 ==
LOC: YASAS 15:17 → Y3N 17:12
PROVIDERS: ADMIT Allergy & Immunology; ATTEND Allergy & Immunology
PROC: HZ2ZZZZ Detoxification Services for Substance Abuse Treatment (ICD-10-PCS; principal; 2021-06-08)
DX: F11.23 Opioid dependence with withdrawal (principal); F10.230 Alcohol dependence with withdrawal, uncomplicated; F14.20 Cocaine dependence, uncomplicated; F16.229 Hallucinogen dependence with intoxication, unspecified; F12.20 Cannabis dependence, uncomplicated; F17.210 Nicotine dependence, cigarettes, uncomplicated; G47.00 Insomnia, unspecified; L03.116 Cellulitis of left lower limb; Z91.011 Allergy to milk products
CPT/HCPCS: 36415; 80053; 82947; 85027; 86780; 87811; C9803-CS; J0735; Q0162; U0003; U0005

== ENCOUNTER 2021-07-02 12:53 | Inpatient (IN) | payer BC ==
[2021-07-02] MEDS ORDERED: NICOTINE 10 MG CARTRIDGE (INHALER) IH PRN (13:25)
[2021-07-02] MEDS ORDERED: LOPERAMIDE HCL 2 MG CAPSULE PO PRN (13:25)
[2021-07-02] MEDS ORDERED: P-EPHED 60MG/TRIPROLIDI 2.5MG TABLET PO PRN (13:25)
[2021-07-02] MEDS ORDERED: MAGNESIUM HYDROX 2400MG/30ML ORAL SUSPENSION 30 ML CUP PO PRN (13:25)
[2021-07-02] MEDS ORDERED: MAGNESIUM CITRATE 300 ML BOTTLE PO PRN (13:25)
[2021-07-02] MEDS ORDERED: MAG HYDROX/AL HYDROX/SIMETH 30 ML UNIT-DOSE CUP PO PRN (13:25)
[2021-07-02] MEDS ORDERED: guaiFENesin 200 MG/10 ML 10 ML UNIT-DOSE CUPS PO PRN (13:25)
[2021-07-02 13:28] VITALS: BMI 24.5
[2021-07-02] MEDS: PRENATAL VITAMINS W/ FOLIC ACID TABLET (FP) PO SCH (16:52)
[2021-07-02] MEDS: NICOTINE 7 MG/24 HOURS TOPICAL PATCH TD SCH (16:53)
[2021-07-02] MEDS: hydrOXYzine PAMOATE 25 MG CAPSULE (FP) PO SCH ×3 (16:53→21:47)
[2021-07-02 17:17] LABS: HEMATOCRIT 44.1 % (35.4-49); HEMOGLOBIN 14.4 GM/dL (11.7-16.9); MCH 27.5 pg (25.7-33.7); MCHC 32.6 g/dl (32.0-35.9); MEAN CELL VOLUME 84.2 fl (80-96); MEAN PLT VOLUME 9.1 fl (7.5-11.1); PLATELET COUNT 300 10^3/uL (134-434); RBC 5.23 M/mm3 (4.00-5.60); RDW 16.4 % (11.9-15.9); WHITE BLOOD COUNT 5.3 K/mm3 (4.0-10.0)
[2021-07-02 17:28] LABS: CALCIUM 9.2 mg/dL (8.5-10.1)
[2021-07-02 17:29] LABS: ALBUMIN 3.9 g/dl (3.4-5.0); BLOOD UREA NITROGEN 15.8 mg/dL (7-18)
[2021-07-02 17:32] LABS: CREATININE 0.8 mg/dL (0.55-1.3)
[2021-07-02 17:33] LABS: BILIRUBIN,TOTAL 0.2 mg/dL (0.2-1)
[2021-07-02] MEDS: IBUPROFEN 400 MG TABLET (FP) PO PRN (17:54)
[2021-07-02 17:57] LABS: SYPHILIS W/ RPR CONF NON-REACTIVE (NONREACTIVE)
[2021-07-02] MEDS: MELATONIN 5 MG TABLETS PO SCH (21:47)
[2021-07-02] MEDS: THIAMINE HCL 100 MG TABLET (FP) PO SCH (21:47)
[2021-07-02] MEDS: ACETAMINOPHEN 325 MG TABLET (FP) PO PRN (21:48)
[2021-07-03 02:08] LABS: PH,URINE 5.5 (5.0-8.0); URINE APPEARANCE CLEAR; URINE BILIRUBIN NEGATIVE (NEGATIVE); URINE COLOR YELLOW; URINE GLUCOSE (UA) NEGATIVE (NEGATIVE); URINE KETONE NEGATIVE (NEGATIVE); URINE LEUK ESTERASE NEGATIVE (NEGATIVE); URINE NITRITE NEGATIVE (NEGATIVE); URINE PROTEIN NEGATIVE (NEGATIVE); URINE UROBILINOGEN 0.2 mg/dL (0.2-1.0)
[2021-07-03] MEDS: hydrOXYzine PAMOATE 25 MG CAPSULE (FP) PO SCH ×2 (06:43→11:22)
[2021-07-03] MEDS: PRENATAL VITAMINS W/ FOLIC ACID TABLET (FP) PO SCH (11:22)
[2021-07-03] MEDS: NICOTINE 7 MG/24 HOURS TOPICAL PATCH TD SCH (11:22)
[2021-07-03] MEDS: LIDOCAINE 5% TOPICAL PATCH TP SCH (18:28)
[2021-07-03] MEDS: THIAMINE HCL 100 MG TABLET (FP) PO SCH (21:31)
[2021-07-03] MEDS: cloNIDine HCL 0.1 MG TABLET PO PRN (21:34)
[2021-07-03] MEDS: IBUPROFEN 400 MG TABLET (FP) PO PRN (21:35)
[2021-07-03] MEDS: LIDOCAINE PATCH REMOVAL MC SCH (22:06)
[2021-07-03] MEDS: MELATONIN 5 MG TABLETS PO SCH (22:06)
[2021-07-04] MEDS: PRENATAL VITAMINS W/ FOLIC ACID TABLET (FP) PO SCH (12:08)
[2021-07-04] MEDS: LIDOCAINE 5% TOPICAL PATCH TP SCH (12:08)
[2021-07-04] MEDS: NICOTINE 7 MG/24 HOURS TOPICAL PATCH TD SCH (12:08)
[2021-07-04] MEDS: cloNIDine HCL 0.1 MG TABLET PO PRN (12:11)
[2021-07-04 14:08] LABS: SARS-CoV-2 NAA Not Detected (Not Detected)
[2021-07-04] MEDS: LIDOCAINE PATCH REMOVAL MC SCH (21:48)
[2021-07-04] MEDS: IBUPROFEN 400 MG TABLET (FP) PO PRN (21:52)
[2021-07-04] MEDS: MELATONIN 5 MG TABLETS PO SCH (21:52)
[2021-07-04] MEDS: THIAMINE HCL 100 MG TABLET (FP) PO SCH (21:52)
[2021-07-04] MEDS: hydrOXYzine PAMOATE 25 MG CAPSULE (FP) PO PRN (21:53)
[2021-07-04] MEDS: METHOCARBAMOL 500 MG TABLET PO PRN (21:53)
[2021-07-05] MEDS: NICOTINE 7 MG/24 HOURS TOPICAL PATCH TD SCH (10:30)
[2021-07-05] MEDS: PRENATAL VITAMINS W/ FOLIC ACID TABLET (FP) PO SCH (10:30)
[2021-07-05] MEDS: LIDOCAINE 5% TOPICAL PATCH TP SCH (10:30)
[2021-07-05] MEDS: cloNIDine HCL 0.1 MG TABLET PO PRN ×2 (12:25→21:39)
[2021-07-05] MEDS: IBUPROFEN 400 MG TABLET (FP) PO PRN (12:25)
[2021-07-05] MEDS: METHOCARBAMOL 500 MG TABLET PO PRN ×2 (12:25→21:38)
[2021-07-05] MEDS: MELATONIN 5 MG TABLETS PO SCH (21:38)
[2021-07-05] MEDS: LIDOCAINE PATCH REMOVAL MC SCH (21:38)
[2021-07-05] MEDS: hydrOXYzine PAMOATE 25 MG CAPSULE (FP) PO PRN (21:38)
[2021-07-05] MEDS: THIAMINE HCL 100 MG TABLET (FP) PO SCH (21:38)
[2021-07-05] MEDS: ACETAMINOPHEN 325 MG TABLET (FP) PO PRN (21:39)
[2021-07-06] MEDS: NICOTINE 7 MG/24 HOURS TOPICAL PATCH TD SCH (10:17)
[2021-07-06] MEDS: LIDOCAINE 5% TOPICAL PATCH TP SCH (10:17)
[2021-07-06] MEDS: PRENATAL VITAMINS W/ FOLIC ACID TABLET (FP) PO SCH (10:17)
[2021-07-06] MEDS: METHOCARBAMOL 500 MG TABLET PO PRN ×2 (10:18→21:47)
[2021-07-06] MEDS: MELATONIN 5 MG TABLETS PO SCH (21:46)
[2021-07-06] MEDS: THIAMINE HCL 100 MG TABLET (FP) PO SCH (21:46)
[2021-07-06] MEDS: LIDOCAINE PATCH REMOVAL MC SCH (21:47)
[2021-07-06] MEDS: cloNIDine HCL 0.1 MG TABLET PO PRN (21:47)
[2021-07-07] MEDS: LIDOCAINE 5% TOPICAL PATCH TP SCH (10:18)
[2021-07-07] MEDS: PRENATAL VITAMINS W/ FOLIC ACID TABLET (FP) PO SCH (10:18)
[2021-07-07] MEDS: NICOTINE 7 MG/24 HOURS TOPICAL PATCH TD SCH (10:18)
[2021-07-07] MEDS: LIDOCAINE PATCH REMOVAL MC SCH (21:34)
[2021-07-07] MEDS: THIAMINE HCL 100 MG TABLET (FP) PO SCH (21:35)
[2021-07-07] MEDS: MELATONIN 5 MG TABLETS PO SCH (21:35)
[2021-07-07] MEDS: IBUPROFEN 400 MG TABLET (FP) PO PRN (21:36)
[2021-07-07] MEDS: METHOCARBAMOL 500 MG TABLET PO PRN (21:36)
[2021-07-08] MEDS: cloNIDine HCL 0.1 MG TABLET PO PRN ×2 (10:07→21:45)
[2021-07-08] MEDS: LIDOCAINE 5% TOPICAL PATCH TP SCH (10:08)
[2021-07-08] MEDS: NICOTINE 7 MG/24 HOURS TOPICAL PATCH TD SCH (10:08)
[2021-07-08] MEDS: PRENATAL VITAMINS W/ FOLIC ACID TABLET (FP) PO SCH (10:08)
[2021-07-08] MEDS: THIAMINE HCL 100 MG TABLET (FP) PO SCH (21:45)
[2021-07-08] MEDS: METHOCARBAMOL 500 MG TABLET PO PRN (21:45)
[2021-07-08] MEDS: LIDOCAINE PATCH REMOVAL MC SCH (21:45)
[2021-07-08] MEDS: IBUPROFEN 400 MG TABLET (FP) PO PRN (21:46)
[2021-07-08] MEDS: hydrOXYzine PAMOATE 25 MG CAPSULE (FP) PO PRN (21:46)
[2021-07-08] MEDS: MELATONIN 5 MG TABLETS PO SCH (21:46)
[2021-07-09] MEDS: PRENATAL VITAMINS W/ FOLIC ACID TABLET (FP) PO SCH (10:55)
[2021-07-09] MEDS: NICOTINE 7 MG/24 HOURS TOPICAL PATCH TD SCH (10:55)
[2021-07-09] MEDS: LIDOCAINE 5% TOPICAL PATCH TP SCH (10:55)
[2021-07-09 14:08] LABS: SARS-CoV-2 NAA Not Detected (Not Detected)
[2021-07-09] MEDS: MELATONIN 5 MG TABLETS PO SCH (21:48)
[2021-07-09] MEDS: LIDOCAINE PATCH REMOVAL MC SCH (21:48)
[2021-07-09] MEDS: THIAMINE HCL 100 MG TABLET (FP) PO SCH (21:49)
[2021-07-09] MEDS: cloNIDine HCL 0.1 MG TABLET PO PRN (21:50)
[2021-07-09] MEDS: METHOCARBAMOL 500 MG TABLET PO PRN (21:50)
[2021-07-09] MEDS: hydrOXYzine PAMOATE 25 MG CAPSULE (FP) PO PRN (21:51)
[2021-07-10] MEDS: LIDOCAINE 5% TOPICAL PATCH TP SCH (10:58)
[2021-07-10] MEDS: NICOTINE 7 MG/24 HOURS TOPICAL PATCH TD SCH (10:58)
[2021-07-10] MEDS: METHOCARBAMOL 500 MG TABLET PO PRN ×2 (11:00→22:10)
[2021-07-10] MEDS: PRENATAL VITAMINS W/ FOLIC ACID TABLET (FP) PO SCH (11:00)
[2021-07-10] MEDS: cloNIDine HCL 0.1 MG TABLET PO PRN ×2 (11:00→22:09)
[2021-07-10] MEDS: LIDOCAINE PATCH REMOVAL MC SCH (22:08)
[2021-07-10] MEDS: MELATONIN 5 MG TABLETS PO SCH (22:09)
[2021-07-10] MEDS: THIAMINE HCL 100 MG TABLET (FP) PO SCH (22:09)
[2021-07-11] MEDS: ONDANSETRON *ODT* 4 MG TABLET SL PRN (09:32)
[2021-07-11] MEDS: LIDOCAINE 5% TOPICAL PATCH TP SCH (10:22)
[2021-07-11] MEDS: NICOTINE 7 MG/24 HOURS TOPICAL PATCH TD SCH (10:22)
[2021-07-11] MEDS: PRENATAL VITAMINS W/ FOLIC ACID TABLET (FP) PO SCH (10:22)
[2021-07-11] MEDS: LIDOCAINE PATCH REMOVAL MC SCH (22:15)
[2021-07-11] MEDS: hydrOXYzine PAMOATE 25 MG CAPSULE (FP) PO PRN (22:15)
[2021-07-11] MEDS: THIAMINE HCL 100 MG TABLET (FP) PO SCH (22:15)
[2021-07-11] MEDS: MELATONIN 5 MG TABLETS PO SCH (22:15)
[2021-07-11] MEDS: cloNIDine HCL 0.1 MG TABLET PO PRN (22:16)
[2021-07-11] MEDS: METHOCARBAMOL 500 MG TABLET PO PRN (22:16)
[2021-07-12] MEDS: LIDOCAINE 5% TOPICAL PATCH TP SCH (12:34)
[2021-07-12] MEDS: NICOTINE 7 MG/24 HOURS TOPICAL PATCH TD SCH (12:35)
[2021-07-12] MEDS: PRENATAL VITAMINS W/ FOLIC ACID TABLET (FP) PO SCH (12:35)
[2021-07-12] MEDS: MELATONIN 5 MG TABLETS PO SCH (21:23)
[2021-07-12] MEDS: THIAMINE HCL 100 MG TABLET (FP) PO SCH (21:32)
[2021-07-12] MEDS: METHOCARBAMOL 500 MG TABLET PO PRN (21:32)
[2021-07-12] MEDS: LIDOCAINE PATCH REMOVAL MC SCH (21:32)
[2021-07-12] MEDS: IBUPROFEN 400 MG TABLET (FP) PO PRN (21:33)
[2021-07-12] MEDS: cloNIDine HCL 0.1 MG TABLET PO PRN (21:34)
[2021-07-13] MEDS: PRENATAL VITAMINS W/ FOLIC ACID TABLET (FP) PO SCH (11:00)
[2021-07-13] MEDS: LIDOCAINE 5% TOPICAL PATCH TP SCH (11:00)
[2021-07-13] MEDS: NICOTINE 7 MG/24 HOURS TOPICAL PATCH TD SCH (11:00)
[2021-07-13] MEDS: IBUPROFEN 400 MG TABLET (FP) PO PRN (21:26)
[2021-07-13] MEDS: LIDOCAINE PATCH REMOVAL MC SCH (21:27)
[2021-07-13] MEDS: MELATONIN 5 MG TABLETS PO SCH (23:58)
[2021-07-13] MEDS: THIAMINE HCL 100 MG TABLET (FP) PO SCH (23:58)
[2021-07-14] MEDS: LIDOCAINE 5% TOPICAL PATCH TP SCH (10:31)
[2021-07-14] MEDS: NICOTINE 7 MG/24 HOURS TOPICAL PATCH TD SCH (10:31)
[2021-07-14] MEDS: PRENATAL VITAMINS W/ FOLIC ACID TABLET (FP) PO SCH (10:31)
[2021-07-14] MEDS: THIAMINE HCL 100 MG TABLET (FP) PO SCH (21:35)
[2021-07-14] MEDS: METHOCARBAMOL 500 MG TABLET PO PRN (21:35)
[2021-07-14] MEDS: cloNIDine HCL 0.1 MG TABLET PO PRN (21:35)
[2021-07-14] MEDS: IBUPROFEN 400 MG TABLET (FP) PO PRN (21:35)
[2021-07-14] MEDS: hydrOXYzine PAMOATE 25 MG CAPSULE (FP) PO PRN (21:35)
[2021-07-14] MEDS: LIDOCAINE PATCH REMOVAL MC SCH (21:36)
[2021-07-14] MEDS: MELATONIN 5 MG TABLETS PO SCH (21:36)
[2021-07-15] MEDS: LIDOCAINE 5% TOPICAL PATCH TP SCH (10:25)
[2021-07-15] MEDS: NICOTINE 7 MG/24 HOURS TOPICAL PATCH TD SCH (10:25)
[2021-07-15] MEDS: PRENATAL VITAMINS W/ FOLIC ACID TABLET (FP) PO SCH (10:25)
[2021-07-15] MEDS: ONDANSETRON *ODT* 4 MG TABLET SL PRN (14:05)
[2021-07-15] MEDS: MELATONIN 5 MG TABLETS PO SCH (21:41)
[2021-07-15] MEDS: IBUPROFEN 400 MG TABLET (FP) PO PRN (21:41)
[2021-07-15] MEDS: hydrOXYzine PAMOATE 25 MG CAPSULE (FP) PO PRN (21:42)
[2021-07-15] MEDS: THIAMINE HCL 100 MG TABLET (FP) PO SCH (21:42)
[2021-07-15] MEDS: LIDOCAINE PATCH REMOVAL MC SCH (21:44)
[2021-07-15] MEDS: METHOCARBAMOL 500 MG TABLET PO PRN (21:44)
[2021-07-15] MEDS: cloNIDine HCL 0.1 MG TABLET PO PRN (21:44)
[2021-07-16 07:26] VITALS: BP 124/81; PULSE 87; TEMP 97.8
[2021-07-16] MEDS: PRENATAL VITAMINS W/ FOLIC ACID TABLET (FP) PO SCH (09:46)
[2021-07-16] MEDS: IBUPROFEN 400 MG TABLET (FP) PO PRN (09:46)
[2021-07-16] MEDS: LIDOCAINE 5% TOPICAL PATCH TP SCH (09:47)
[2021-07-16] MEDS: NICOTINE 7 MG/24 HOURS TOPICAL PATCH TD SCH (09:47)
== END 2021-07-16 11:15 | disposition home or self-care (01) | DRG 772 ==
LOC: YASAS 12:53 → Y5N 14:56
PROVIDERS: ADMIT Allergy & Immunology; ATTEND Allergy & Immunology
PROC: HZ42ZZZ Group Counseling for Substance Abuse Treatment, Cognitive-Behavioral (ICD-10-PCS; principal; 2021-07-02)
DX: F11.20 Opioid dependence, uncomplicated (principal); F10.20 Alcohol dependence, uncomplicated; F16.20 Hallucinogen dependence, uncomplicated; Z87.891 Personal history of nicotine dependence; Z91.011 Allergy to milk products
CPT/HCPCS: 36415; 80053; 81003; 85027; 86780; 86803; 87522; 87811; C9803-CS; J0735; Q0162; U0003; U0005

== ENCOUNTER 2021-12-24 11:54 | Inpatient (IN) | payer BC ==
[2021-12-24 12:49] VITALS: RESP 18; BMI 25.7
[2021-12-24] MEDS ORDERED: BUPRENORPHINE HCL 150 MCG, BUPRENORPHINE HCL 75 MCG BC ONE (13:12)
[2021-12-24] MEDS ORDERED: NALOXONE HCL (KLOXXADO) 8 MG SPRAY NS PRN (13:12)
[2021-12-24] MEDS ORDERED: BUPRENORPHINE HCL 150 MCG, BUPRENORPHINE HCL 75 MCG BC PRN (13:12)
[2021-12-24] MEDS ORDERED: ONDANSETRON *ODT* 4 MG TABLET SL PRN (13:12)
[2021-12-24] MEDS ORDERED: cloNIDine HCL 0.1 MG TABLET PO ONE (13:12)
[2021-12-24] MEDS ORDERED: NICOTINE 10 MG CARTRIDGE (INHALER) IH PRN (13:12)
[2021-12-24] MEDS ORDERED: BISMUTH SUBSALICYLATE 524 MG/30 ML PO PRN (13:12)
[2021-12-24] MEDS ORDERED: DICYCLOMINE HCL 10 MG CAPSULE PO PRN (13:12)
[2021-12-24] MEDS ORDERED: IBUPROFEN 400 MG TABLET (FP) PO PRN (13:12)
[2021-12-24] MEDS ORDERED: MAG HYDROX/AL HYDROX/SIMETH 30 ML UNIT-DOSE CUP PO PRN (13:12)
[2021-12-24] MEDS ORDERED: ACETAMINOPHEN 325 MG TABLET (FP) PO PRN ×2 (13:12)
[2021-12-24] MEDS ORDERED: diazePAM 5 MG TABLET PO PRN (13:12)
[2021-12-24] MEDS ORDERED: BENZOCAINE/MENTHOL (CHLORASEPTIC ) LOZENGE MM PRN (13:12)
[2021-12-24] MEDS ORDERED: MAGNESIUM HYDROX 2400MG/30ML ORAL SUSPENSION 30 ML CUP PO PRN (13:12)
[2021-12-24] MEDS ORDERED: MAGNESIUM CITRATE 300 ML BOTTLE PO PRN (13:12)
[2021-12-24] MEDS ORDERED: IBUPROFEN 600 MG TABLET (FP) PO PRN (13:12)
[2021-12-24] MEDS ORDERED: LORazepam 1 MG TABLET PO PRN (13:12)
[2021-12-24] MEDS ORDERED: LOPERAMIDE HCL 2 MG CAPSULE PO PRN (13:12)
[2021-12-24] MEDS: LORazepam 2 MG TABLET PO SCH ×3 (13:47→22:45)
[2021-12-24] MEDS: METHOCARBAMOL 500 MG TABLET PO PRN (13:50)
[2021-12-24] MEDS: hydrOXYzine PAMOATE 25 MG CAPSULE (FP) PO SCH ×3 (14:19→22:46)
[2021-12-24] MEDS: PRENATAL VITAMINS W/ FOLIC ACID TABLET (FP) PO SCH (14:19)
[2021-12-24 16:35] LABS: HEMATOCRIT 35.8 % (35.4-49); HEMOGLOBIN 12.1 GM/dL (11.7-16.9); MCH 28.3 pg (25.7-33.7); MCHC 33.8 g/dl (32.0-35.9); MEAN CELL VOLUME 83.7 fl (80-96); MEAN PLT VOLUME 9.4 fl (7.5-11.1); PLATELET COUNT 258 10^3/uL (134-434); RBC 4.28 M/mm3 (4.00-5.60); RDW 15.2 % (11.9-15.9); WHITE BLOOD COUNT 6.8 K/mm3 (4.0-10.0)
[2021-12-24 16:49] LABS: BLOOD UREA NITROGEN 15.3 mg/dL (7-18); CALCIUM 9.9 mg/dL (8.5-10.1)
[2021-12-24 16:51] LABS: CREATININE 0.7 mg/dL (0.55-1.3)
[2021-12-24 16:52] LABS: BILIRUBIN,TOTAL 0.6 mg/dL (0.2-1); TOT PROT 7.4 g/dl (6.4-8.2)
[2021-12-24] MEDS ORDERED: cloNIDine HCL 0.1 MG TABLET PO PRN (17:13)
[2021-12-24] MEDS ORDERED: THIAMINE HCL 100 MG TABLET (FP) PO SCH (22:00)
[2021-12-24] MEDS ORDERED: MELATONIN 5 MG TABLETS PO SCH (22:00)
[2021-12-25] MEDS ORDERED: BUPRENORPHINE HCL 150 MCG, BUPRENORPHINE HCL 75 MCG BC PRN
[2021-12-25] MEDS ORDERED: BUPRENORPHINE HCL 150 MCG, BUPRENORPHINE HCL 75 MCG BC SCH (06:00)
[2021-12-25] MEDS: hydrOXYzine PAMOATE 25 MG CAPSULE (FP) PO SCH ×3 (06:10→13:05)
[2021-12-25] MEDS: LORazepam 2 MG TABLET PO SCH ×2 (06:10→10:42)
[2021-12-25] MEDS: PRENATAL VITAMINS W/ FOLIC ACID TABLET (FP) PO SCH (10:42)
[2021-12-25] MEDS: METHOCARBAMOL 500 MG TABLET PO PRN (10:43)
[2021-12-25 13:35] VITALS: BP 101/67; PULSE 111; TEMP 97.5
[2021-12-25] MEDS ORDERED: LACTULOSE 20 GM/30 ML UDC (FOR ORAL USE ONLY) PO SCH (14:00)
[2021-12-26] MEDS ORDERED: LORazepam 1 MG TABLET PO SCH (05:00)
[2021-12-26] MEDS ORDERED: BUPRENORPHINE HCL 450 MCG FILM BC SCH (06:00)
[2021-12-27] MEDS ORDERED: LORazepam 0.5 MG TABLET PO PRN
[2021-12-27] MEDS ORDERED: LORazepam 0.5 MG TABLET PO SCH (05:00)
[2021-12-27] MEDS ORDERED: BUPRENORPHINE/NALOXONE 4 MG/1 MG FILM PACKET SL SCH (06:00)
[2021-12-28] MEDS ORDERED: LORazepam 0.5 MG TABLET PO ONE (05:00)
[2021-12-28] MEDS ORDERED: BUPRENORPHINE/NALOXONE 8 MG/2 MG FILM PACKET SL ONE (06:00)
== END 2021-12-25 14:39 | disposition left against medical advice (07) | DRG 770 ==
LOC: YASAS 11:54 → Y6N 13:43
PROVIDERS: ADMIT Allergy & Immunology; ATTEND Surgery
PROC: HZ2ZZZZ Detoxification Services for Substance Abuse Treatment (ICD-10-PCS; principal; 2021-12-24)
DX: F11.23 Opioid dependence with withdrawal (principal); F10.230 Alcohol dependence with withdrawal, uncomplicated; F14.20 Cocaine dependence, uncomplicated; F12.20 Cannabis dependence, uncomplicated; F17.210 Nicotine dependence, cigarettes, uncomplicated; F19.280 Other psychoactive substance dependence with psychoactive substance-induced anxiety disorder; F19.282 Other psychoactive substance dependence with psychoactive substance-induced sleep disorder; R79.89 Other specified abnormal findings of blood chemistry; R74.8 Abnormal levels of other serum enzymes; Z56.0 Unemployment, unspecified; Z59.00 Homelessness unspecified
CPT/HCPCS: 36415; 80053; 82140; 85027; 86780; C9803-CS; U0003; U0005